=== PATIENT | female | born 1965 | race Caucasian/White ===

== ENCOUNTER 2020-09-26 18:06 | Observation (INO) ==
[2020-09-26 21:04] LABS: ABS Eosinophils 0.1 10^3/ul (0-0.6); ABS Lymphocytes 2.1 10^3/ul (1.0-4.8); ABS Monocytes 0.8 10^3/ul (0-0.8); ABS Neutrophils 5.7 10^3/ul (1.5-7.7); Eosinophil % 1.7 %; Hematocrit 39 % (35-47); Hemoglobin 13.3 g/dL (12.0-16.0); Lymphocyte % 24.1 %; Mean Corpuscular HGB Conc 34 g/dL (31-36); Mean Corpuscular Hemoglobin 31 pg (27-31); Mean Corpuscular Volume 91 fL (80-97); Mean Platelet Volume 6.9 fL (7.4-10.4); Platelet Count 296 10^3/uL (150-450); Red Blood Count 4.29 10^6 /uL (3.70-4.87); Red Cell Distribution Width 13 % (10-15); White Blood Count 8.8 10^3/uL (3.5-10.8)
[2020-09-26 21:13] LABS: Urine Appearance Cloudy; Urine Bilirubin Negative (Negative); Urine Blood 1+ (Negative); Urine Color Yellow; Urine Glucose Negative (Negative); Urine Ketones Trace (Negative); Urine Nitrite Negative (Negative); Urine Protein 1+(30 mg/dL) (Negative); Urine Specific Gravity 1.024 (1.002-1.030); Urine Urobilinogen Negative (Negative)
[2020-09-26 21:20] LABS: Urine Bacteria 1+ (Absent); Urine Red Blood Cell 1+(3-5/hpf) (Absent); Urine Squamous Epithelial Cell Present (Absent); Urine White Blood Cell 3+(>20/hpf) (Absent)
[2020-09-26 21:23] LABS: Albumin 4.5 g/dL (3.2-5.2); Albumin/Globulin Ratio 1.6 (1-3); C Reactive Protein 12.91 mg/L (<8.01); Calcium 9.2 mg/dL (8.6-10.3); EGFR Non-African American 79.3 (>60); Globulin 2.9 g/dL (2-4); Potassium 3.5 mmol/L (3.5-5.0); Total Bilirubin 0.6 mg/dL (0.2-1.0); Total Protein 7.4 g/dL (6.4-8.9)
[2020-09-27] MEDS ORDERED: Iohexol 300 (CONTRAST) 10 ML SDV IV ONE (01:49)
[2020-09-27] MEDS ORDERED: Piperacillin/Tazobac ADVAN 3.375 GM in NS 0.9% 100 ml BAG 100 ML IV ONE (03:02)
[2020-09-27] MEDS ORDERED: Zosyn per Pharmacy NOTE FOLLOW UP SCH (04:00)
[2020-09-27] MEDS ORDERED: Ondansetron 4 mg VIAL 2 MG/ML 2 ml VIAL IV PRN (04:52)
[2020-09-27] MEDS ORDERED: Morphine 2 MG/ML SYRINGE IV PRN (04:52)
[2020-09-27 05:33] LABS: INR 1.04 (0.82-1.09)
[2020-09-27] MEDS: ZOSYN 3.375 GM Q8H per EXTENDED INFUSION IV SCH ×3 (07:59→23:46)
[2020-09-27] MEDS: NS 0.9% 1000 ml BAG 1,000 ML IV SCH ×2 (08:42→17:19)
[2020-09-27] MEDS ORDERED: Lidocaine 2% PF 5 ML VIAL ONE (13:29)
[2020-09-27] MEDS ORDERED: Midazolam 2 mg/2 ml VIAL 1 mg/ml 2 ml VIAL (2 mg) ONE (13:29)
[2020-09-27] MEDS ORDERED: Propofol 10 MG/ML 20 ML BTL ONE ×2 (13:29→15:13)
[2020-09-27] MEDS ORDERED: fentaNYL 100 mcg/2 ml 50 MCG/ML VIAL ONE (13:29)
[2020-09-27] MEDS ORDERED: Rocuronium 50 mg VIAL 10 mg/ml 5 ml VIAL (50 mg) ONE ×2 (13:39→15:50)
[2020-09-27] MEDS ORDERED: ceFAZolin 2 GM PREMIX 2 GM/50 ML BAG ONE (14:02)
[2020-09-27] MEDS ORDERED: Phenylephrine 40 mcg/mL 10mL (400mcg) SYRINGE ONE (14:15)
[2020-09-27] MEDS ORDERED: Dexamethasone IV 4 MG/ML VIAL 1 ml VIAL ONE (14:16)
[2020-09-27] MEDS ORDERED: Ondansetron 4 mg VIAL 2 MG/ML 2 ml VIAL ONE (14:16)
[2020-09-27] MEDS ORDERED: HYDROmorphone 1 MG/1 ML SYRINGE ONE (14:46)
[2020-09-27] MEDS ORDERED: Acetaminophen IV 1 GM/100ML 100 ML ONE (15:23)
[2020-09-27] MEDS ORDERED: fentaNYL 100 mcg/2 ml 50 MCG/ML VIAL IV PRN (15:49)
[2020-09-27] MEDS ORDERED: diPHENhydraMINE IV 50 MG/ML 1 ml VIAL (BENADRYL) IV PRN (15:49)
[2020-09-27] MEDS ORDERED: Naloxone 0.4 mg VIAL 0.4 mg/ml 1 ml VIAL IV PRN (15:49)
[2020-09-27] MEDS: oxyCODONE/Acetamin 5/325 mg TAB PO PRN (23:43)
[2020-09-28] MEDS: NS 0.9% 1000 ml BAG 1,000 ML IV SCH (02:29)
[2020-09-28 07:04] LABS: ABS Lymphocytes 1.2 10^3/ul (1.0-4.8); ABS Monocytes 0.9 10^3/ul (0-0.8); ABS Neutrophils 8.3 10^3/ul (1.5-7.7); Eosinophil % 0.1 %; Hematocrit 33 % (35-47); Hemoglobin 11.3 g/dL (12.0-16.0); Lymphocyte % 11.5 %; Mean Corpuscular HGB Conc 34 g/dL (31-36); Mean Corpuscular Hemoglobin 32 pg (27-31); Mean Corpuscular Volume 92 fL (80-97); Mean Platelet Volume 7.2 fL (7.4-10.4); Platelet Count 253 10^3/uL (150-450); Red Blood Count 3.56 10^6 /uL (3.70-4.87); Red Cell Distribution Width 13 % (10-15); White Blood Count 10.3 10^3/uL (3.5-10.8)
[2020-09-28] MEDS: ZOSYN 3.375 GM Q8H per EXTENDED INFUSION IV SCH (07:50)
[2020-09-28] MEDS: oxyCODONE/Acetamin 5/325 mg TAB PO PRN (07:51)
[2020-09-28 08:09] VITALS: BP 113/70
[2020-09-28 18:47] LABS: Albumin 3.5 g/dL (3.2-5.2); Potassium 3.7 mmol/L (3.5-5.0); Total Bilirubin 0.8 mg/dL (0.2-1.0)
[2020-09-28 18:53] LABS: Albumin/Globulin Ratio 1.5 (1-3); EGFR African American 105.5 (>60); EGFR Non-African American 87.2 (>60); Globulin 2.3 g/dL (2-4); Total Protein 5.8 g/dL (6.4-8.9)
== END 2020-09-28 11:32 | disposition home or self-care (01) ==
LOC: ED 18:06 → SSU 09-27 03:42 → INTOOBSV 09-27 03:42 → SSU 09-27 05:58
PROVIDERS: ADMIT Hospitalist; ATTEND Student in an Organized Health Care Education/Training Program